=== PATIENT | female | born 1955 | race Caucasian/White ===

== ENCOUNTER → 2017-10-29 | Outpatient (CLI) | payer OTHER ==
[~2017-10-29] MED LIST: ASPI325 PO; ASPI325EC PO; ASPI81CH PO; ASPI81EC PO; CLOP75 PO; CYCL10; CYCL10 PO; ESTR2 PO; ESTRACE PO; FLUO10 PO; GLIM2 PO; HYDACE5 PO; HYDCHL25 PO; IBUP600 PO; INSULANPEN; ISOMON20 PO; ISOMON60ER PO; Imdur30 MG; LISI5 PO; LORA1 PO; LOVA20 PO; METF500 PO; METF500C PO; METO100ER PO; METO25ER PO; NITR.4SL SL; PIOG15 PO; SIMV40 PO; SIMV80 PO; SIMVASTATIN; SITA25T2 PO; SPIR25 PO
== END ==
LOC: LAB SHORT 18:06 → LAB 18:06
DX: E11.51 Type 2 diabetes mellitus with diabetic peripheral angiopathy without gangrene (principal)
CPT/HCPCS: 83036

== ENCOUNTER 2018-06-20 04:39 | Emergency (ER) | payer OTHER ==
[~2018-06-20] VITALS: Ht 157.5 cm; Wt 102.1 kg
[2018-06-20 05:04] LABS: BASOPHILS ABSOLUTE AUTO 0.07 K/mm3 (0.00-0.23); BASOPHILS PERCENT AUTO 1 % (0-2); EOSINOPHILS ABSOLUTE AUTO 0.19 K/mm3 (0.00-0.68); EOSINOPHILS PERCENT AUTO 2 % (0-6); Hemoglobin 13.2 g/dL (11.5-16.0); IMMATURE GRAN ABSOLUTE AUTO 0.05 K/mm3 (0.00-0.10); IMMATURE GRAN PERCENT AUTO 1 % (0-1); LYMPHOCYTES ABSOLUTE AUTO 1.79 K/mm3 (0.84-5.20); LYMPHOCYTES PERCENT AUTO 18 % (21-46); MONOCYTES ABSOLUTE AUTO 0.99 K/mm3 (0.16-1.47); MONOCYTES PERCENT AUTO 10 % (4-13); Mean Corpuscular HGB 30.6 pg (26.0-34.0); Mean Corpuscular HGB Conc 32.2 g/dL (31.5-36.5); Mean Corpuscular Volume 95 fL (80-100); Mean Platelet Volume 9.2 fL (9.1-12.4); NEUTROPHILS ABSOLUTE AUTO 7.15 K/mm3 (1.96-9.15); NEUTROPHILS PERCENT AUTO 70 % (41-73); Platelet Count 258 K/mm3 (150-400); RDW Coefficient Variation 14.3 % (11.7-14.2); RDW Standard Deviation 50.3 fL (35.1-46.3); Red Blood Cell Count 4.32 M/mm3 (3.80-5.20); White Blood Cell Count 10.24 K/mm3 (4.00-11.30)
[2018-06-20 05:23] LABS: Alanine Aminotransfer (ALT/SGP 34 U/L (12-78); Albumin, Blood 3.1 g/dL (3.4-5.0); Albumin/Globulin Ratio 0.8 (0.8-1.8); Alk Phos 89 U/L (50-136); Anion Gap 7 mmol/L (6-16); Aspartate Aminotrans (AST/SGOT 26 U/L (12-37); Bilirubin, Total 0.3 mg/dL (0.1-1.0); Blood Urea Nitrogen 10 mg/dL (8-24); Bun/Creatinine Ratio 18.8 (12.0-20.0); CO2, Blood 26 mmol/L (21-32); Calcium, Blood 8.5 mg/dL (8.5-10.1); Chloride, Blood 106 mmol/L (98-108); Creatinine, Blood 0.53 mg/dL (0.40-1.00); Glomerular Filtration Rate >60 (60-); Glucose, Blood 161 mg/dL (70-99); Potassium, Blood 4.1 mmol/L (3.5-5.5); Sodium, Blood 139 mmol/L (136-145); Total Protein, Blood 7.1 g/dL (6.4-8.2)
[2018-06-20 05:37] LABS: Base Excess Venous 1.4 mmol/L; Bicarbonate Venous 24.9 mmol/L (24.0-30.0); PCO2 Venous 48.5 mmHg (38-42); PO2 Venous 52.9 mmHg (38-42); pH Blood Venous 7.35 (7.34-7.37)
[2018-06-20 05:53] LABS: Magnesium, Blood 1.8 mg/dL (1.6-2.4); Troponin I 0.018 ng/mL (0.000-0.040)
[2018-06-20 07:20] LABS: Source, Urine Clean Catch
[2018-06-20 07:34] LABS: Bilirubin, Urine Neg (Neg); Blood, Urine Neg (Neg); Glucose Qualitative, Urine Neg (Neg); Ketones, Urine 1+ (Neg); Leukocyte Esterase, Urine Neg (Neg); Nitrite, Urine Neg (Neg); Protein, Urine Neg (Neg); Urobilinogen, Urine 1+ (Normal)
[2018-06-20 07:37] LABS: Appearance, Urine Clear (Clear); Color, Urine Yellow (P-Yellow)
[2018-06-20] MEDS ORDERED: Lasix20 MG PO (07:45)
[2018-06-20] MEDS ORDERED: ALBU90OI INH (07:53)
== END 2018-06-20 07:57 | disposition home or self-care (01) ==
LOC: ER 04:39
PROVIDERS: Emergency Medicine
DX: I11.0 Hypertensive heart disease with heart failure (principal); I50.9 Heart failure, unspecified; J44.9 Chronic obstructive pulmonary disease, unspecified; E11.9 Type 2 diabetes mellitus without complications; E78.5 Hyperlipidemia, unspecified; F17.200 Nicotine dependence, unspecified, uncomplicated; Z88.8 Allergy status to other drugs, medicaments and biological substances; Z79.899 Other long term (current) drug therapy; Z79.82 Long term (current) use of aspirin; Z79.4 Long term (current) use of insulin
CPT/HCPCS: 36415; 71046; 80053; 81003; 82803; 83735; 83880; 84484; 85025; 93005; 93010; 94640; 94644; 96374; 99285-25; J1940

== ENCOUNTER 2018-10-27 11:49 | Emergency (ER) | payer OTHER ==
[~2018-10-27] VITALS: Ht 157.5 cm; Wt 102.5 kg
[~2018-10-27 11:49] MED LIST changes: +ALBU90OI INH; +Lasix20 MG PO
[2018-10-27 12:18] LABS: BASOPHILS ABSOLUTE AUTO 0.07 K/mm3 (0.00-0.23); BASOPHILS PERCENT AUTO 1 % (0-2); EOSINOPHILS ABSOLUTE AUTO 0.13 K/mm3 (0.00-0.68); EOSINOPHILS PERCENT AUTO 2 % (0-6); Hematocrit 45.5 % (33.0-51.0); Hemoglobin 15.1 g/dL (11.5-16.0); IMMATURE GRAN ABSOLUTE AUTO 0.03 K/mm3 (0.00-0.10); IMMATURE GRAN PERCENT AUTO 0 % (0-1); LYMPHOCYTES ABSOLUTE AUTO 2.13 K/mm3 (0.84-5.20); LYMPHOCYTES PERCENT AUTO 26 % (21-46); MONOCYTES ABSOLUTE AUTO 0.59 K/mm3 (0.16-1.47); MONOCYTES PERCENT AUTO 7 % (4-13); Mean Corpuscular HGB 29.8 pg (26.0-34.0); Mean Corpuscular HGB Conc 33.2 g/dL (31.5-36.5); Mean Corpuscular Volume 90 fL (80-100); Mean Platelet Volume 9.7 fL (9.1-12.4); NEUTROPHILS ABSOLUTE AUTO 5.41 K/mm3 (1.96-9.15); NEUTROPHILS PERCENT AUTO 65 % (41-73); Platelet Count 283 K/mm3 (150-400); RDW Coefficient Variation 13.4 % (11.7-14.2); RDW Standard Deviation 44.1 fL (35.1-46.3); Red Blood Cell Count 5.06 M/mm3 (3.80-5.20); White Blood Cell Count 8.36 K/mm3 (4.00-11.30)
[2018-10-27 12:58] LABS: Alanine Aminotransfer (ALT/SGP 61 U/L (12-78); Alk Phos 93 U/L (50-136); Anion Gap 4 mmol/L (6-16); Aspartate Aminotrans (AST/SGOT 54 U/L (12-37); Bilirubin, Total 0.4 mg/dL (0.1-1.0); Blood Urea Nitrogen 17 mg/dL (8-24); Bun/Creatinine Ratio 29.6 (12.0-20.0); CO2, Blood 26 mmol/L (21-32); Calcium, Blood 9.1 mg/dL (8.5-10.1); Chloride, Blood 101 mmol/L (98-108); Creatinine, Blood 0.57 mg/dL (0.40-1.00); Globulin, Blood 4.1 g/dL (2.2-4.0); Glomerular Filtration Rate >60 (60-); Glucose, Blood 173 mg/dL (70-99); Potassium, Blood 4.1 mmol/L (3.5-5.5); Sodium, Blood 131 mmol/L (136-145); Total Protein, Blood 8.1 g/dL (6.4-8.2); Troponin I <0.015 ng/mL (0.000-0.040)
[2018-10-27 13:44] LABS: Source, Urine Clean Catch
[2018-10-27 14:05] LABS: Appearance, Urine Clear (Clear); Bilirubin, Urine Neg (Neg); Blood, Urine Neg (Neg); Color, Urine Yellow (P-Yellow); Glucose Qualitative, Urine 2+ (Neg); Ketones, Urine 1+ (Neg); Leukocyte Esterase, Urine Neg (Neg); Nitrite, Urine Neg (Neg); Protein, Urine 1+ (Neg); Urobilinogen, Urine 2+ (Normal)
[2018-10-27] MEDS ORDERED: Cipro500 MG PO (14:29)
[2018-10-27] MEDS ORDERED: Flagyl500 MG PO (14:29)
== END 2018-10-27 14:37 | disposition home or self-care (01) ==
LOC: ER 11:49
PROVIDERS: Physician Assistant
DX: K57.32 Diverticulitis of large intestine without perforation or abscess without bleeding (principal); R91.8 Other nonspecific abnormal finding of lung field; Z88.8 Allergy status to other drugs, medicaments and biological substances; Z79.899 Other long term (current) drug therapy; Z79.4 Long term (current) use of insulin; Z79.82 Long term (current) use of aspirin; I10 Essential (primary) hypertension; E11.9 Type 2 diabetes mellitus without complications; E78.5 Hyperlipidemia, unspecified; F17.200 Nicotine dependence, unspecified, uncomplicated
CPT/HCPCS: 36415; 71046; 74176; 80053; 83690; 83880; 84484; 85025; 93005; 93010; 99284-25; A9270-GY

== ENCOUNTER → 2019-05-31 | Outpatient (CLI) | payer OTHER ==
[~2019-05-31] MED LIST changes: +Cipro500 MG PO; +Flagyl500 MG PO
== END | disposition home or self-care (01) ==
LOC: PLD 07:52 → LAB SHORT 07:52
DX: D36.14 Benign neoplasm of peripheral nerves and autonomic nervous system of thorax (principal)
CPT/HCPCS: 88305

== ENCOUNTER 2020-03-19 08:00 | Emergency (ER) | payer OTHER ==
[~2020-03-19] VITALS: Ht 157.5 cm; Wt 93.9 kg
[2020-03-19 09:21] LABS: BASOPHILS ABSOLUTE AUTO 0.05 K/mm3 (0.00-0.23); BASOPHILS PERCENT AUTO 1 % (0-2); EOSINOPHILS ABSOLUTE AUTO 0.03 K/mm3 (0.00-0.68); EOSINOPHILS PERCENT AUTO 0 % (0-6); Hematocrit 40.8 % (33.0-51.0); Hemoglobin 13.6 g/dL (11.5-16.0); IMMATURE GRAN ABSOLUTE AUTO 0.04 K/mm3 (0.00-0.10); IMMATURE GRAN PERCENT AUTO 0 % (0-1); LYMPHOCYTES PERCENT AUTO 21 % (21-46); MONOCYTES ABSOLUTE AUTO 0.76 K/mm3 (0.16-1.47); MONOCYTES PERCENT AUTO 8 % (4-13); Mean Corpuscular HGB 29.6 pg (26.0-34.0); Mean Corpuscular HGB Conc 33.3 g/dL (31.5-36.5); Mean Corpuscular Volume 89 fL (80-100); Mean Platelet Volume 9.6 fL (9.1-12.4); NEUTROPHILS ABSOLUTE AUTO 7.19 K/mm3 (1.96-9.15); NEUTROPHILS PERCENT AUTO 71 % (41-73); Platelet Count 254 K/mm3 (150-400); RDW Coefficient Variation 12.9 % (11.7-14.2); RDW Standard Deviation 42.4 fL (35.1-46.3); Red Blood Cell Count 4.59 M/mm3 (3.80-5.20); White Blood Cell Count 10.17 K/mm3 (4.00-11.30)
[2020-03-19 09:41] LABS: Alanine Aminotransfer (ALT/SGP 55 U/L (12-78); Albumin, Blood 3.3 g/dL (3.4-5.0); Albumin/Globulin Ratio 0.9 (0.8-1.8); Alk Phos 76 U/L (50-136); Anion Gap 7 mmol/L (6-16); Aspartate Aminotrans (AST/SGOT 27 U/L (12-37); Bilirubin, Total 0.4 mg/dL (0.1-1.0); Blood Urea Nitrogen 11 mg/dL (8-24); Bun/Creatinine Ratio 22.8 (12.0-20.0); CO2, Blood 25 mmol/L (21-32); Calcium, Blood 8.8 mg/dL (8.5-10.1); Chloride, Blood 103 mmol/L (98-108); Creatinine, Blood 0.48 mg/dL (0.40-1.00); Globulin, Blood 3.7 g/dL (2.2-4.0); Glomerular Filtration Rate >60 (60-); Glucose, Blood 180 mg/dL (70-99); Potassium, Blood 3.3 mmol/L (3.5-5.5); Sodium, Blood 135 mmol/L (136-145)
[2020-03-19 09:49] LABS: Source, Urine Clean Catch
[2020-03-19 09:51] LABS: Bilirubin, Urine Neg (Neg); Blood, Urine 1+ (Neg); Glucose Qualitative, Urine 2+ (Neg); Ketones, Urine 1+ (Neg); Leukocyte Esterase, Urine 1+ (Neg); Nitrite, Urine Neg (Neg); Protein, Urine 2+ (Neg); Specific Gravity, Urine 1.015 (1.003-1.022); Urobilinogen, Urine NORM (Normal)
[2020-03-19 10:05] LABS: Appearance, Urine Clear (Clear); Color, Urine Yellow (P-Yellow)
[2020-03-19 10:07] LABS: Bacteria Many /hpf; Red Blood Cells, Urine 0-2 /hpf (0-2); Squamous Epithelial Cells Many /hpf (Few)
[2020-03-19] MEDS ORDERED: HYDR1TAB94 PO (10:39)
== END 2020-03-19 10:38 | disposition home or self-care (01) ==
LOC: ER 08:00
PROVIDERS: Emergency Medicine
DX: K52.9 Noninfective gastroenteritis and colitis, unspecified (principal); I10 Essential (primary) hypertension; I25.10 Atherosclerotic heart disease of native coronary artery without angina pectoris; F17.210 Nicotine dependence, cigarettes, uncomplicated; Z91.041 Radiographic dye allergy status; Z79.899 Other long term (current) drug therapy; Z79.82 Long term (current) use of aspirin; Z79.4 Long term (current) use of insulin; Z95.1 Presence of aortocoronary bypass graft
CPT/HCPCS: 36415; 74176; 80053; 81001; 83690; 85025; 87086; 96361; 96374; 96375; 99284-25; J2405; J3010; J7030

== ENCOUNTER → 2020-04-23 | Outpatient (CLI) | payer OTHER ==
[~2020-04-23] MED LIST changes: +HYDR1TAB94 PO
== END | disposition home or self-care (01) ==
LOC: LAB 11:15 → LAB SHORT 11:15
DX: E11.51 Type 2 diabetes mellitus with diabetic peripheral angiopathy without gangrene (principal)
CPT/HCPCS: 82043

== ENCOUNTER 2020-08-05 12:00 | Emergency (ER) | payer OTHER ==
[~2020-08-05] VITALS: Ht 157.5 cm; Wt 100.2 kg
[2020-08-05 13:04] LABS: BASOPHILS ABSOLUTE AUTO 0.07 K/mm3 (0.00-0.23); BASOPHILS PERCENT AUTO 1 % (0-2); EOSINOPHILS ABSOLUTE AUTO 0.12 K/mm3 (0.00-0.68); EOSINOPHILS PERCENT AUTO 1 % (0-6); Hematocrit 44.8 % (33.0-51.0); Hemoglobin 14.6 g/dL (11.5-16.0); IMMATURE GRAN ABSOLUTE AUTO 0.04 K/mm3 (0.00-0.10); IMMATURE GRAN PERCENT AUTO 0 % (0-1); LYMPHOCYTES ABSOLUTE AUTO 2.12 K/mm3 (0.84-5.20); LYMPHOCYTES PERCENT AUTO 17 % (21-46); MONOCYTES ABSOLUTE AUTO 0.74 K/mm3 (0.16-1.47); MONOCYTES PERCENT AUTO 6 % (4-13); Mean Corpuscular HGB 28.9 pg (26.0-34.0); Mean Corpuscular HGB Conc 32.6 g/dL (31.5-36.5); Mean Corpuscular Volume 89 fL (80-100); Mean Platelet Volume 9.9 fL (9.1-12.4); NEUTROPHILS ABSOLUTE AUTO 9.54 K/mm3 (1.96-9.15); NEUTROPHILS PERCENT AUTO 75 % (41-73); Platelet Count 313 K/mm3 (150-400); RDW Coefficient Variation 12.8 % (11.7-14.2); RDW Standard Deviation 41.9 fL (35.1-46.3); Red Blood Cell Count 5.05 M/mm3 (3.80-5.20); White Blood Cell Count 12.63 K/mm3 (4.00-11.30)
[2020-08-05 13:14] LABS: Alanine Aminotransfer (ALT/SGP 59 U/L (12-78); Albumin, Blood 3.4 g/dL (3.4-5.0); Albumin/Globulin Ratio 0.9 (0.8-1.8); Alk Phos 89 U/L (50-136); Anion Gap 7 mmol/L (6-16); Aspartate Aminotrans (AST/SGOT 53 U/L (12-37); Bilirubin, Total 0.3 mg/dL (0.1-1.0); Blood Urea Nitrogen 14 mg/dL (8-24); Bun/Creatinine Ratio 24.6 (12.0-20.0); CO2, Blood 24 mmol/L (21-32); Calcium, Blood 9.2 mg/dL (8.5-10.1); Chloride, Blood 103 mmol/L (98-108); Creatinine, Blood 0.57 mg/dL (0.40-1.00); Globulin, Blood 3.7 g/dL (2.2-4.0); Glomerular Filtration Rate >60 (60-); Glucose, Blood 201 mg/dL (70-99); Potassium, Blood 4.1 mmol/L (3.5-5.5); Sodium, Blood 134 mmol/L (136-145); Total Protein, Blood 7.1 g/dL (6.4-8.2)
[2020-08-05 15:17] LABS: Source, Urine Clean Catch
[2020-08-05 15:29] LABS: Appearance, Urine Clear (Clear); Blood, Urine Neg (Neg); Color, Urine Yellow (P-Yellow); Glucose Qualitative, Urine 3+ (Neg); Ketones, Urine 1+ (Neg); Leukocyte Esterase, Urine 1+ (Neg); Nitrite, Urine Neg (Neg); Protein, Urine 2+ (Neg); Urobilinogen, Urine 2+ (Normal)
[2020-08-05 15:36] LABS: Bilirubin, Urine 1+ (Neg)
[2020-08-05 15:37] LABS: Amorphous Light (0-Heavy); Bacteria Mod /hpf; Mucus Light (0-Heavy); Red Blood Cells, Urine Not Seen /hpf (0-2); Squamous Epithelial Cells Many /hpf (Few); White Blood Cells, Urine 0-2 /hpf (0-5)
[2020-08-05] MEDS ORDERED: AMOCLA875 PO (15:49)
[2020-08-05] MEDS ORDERED: OXYC5 PO (15:49)
[2020-08-05] MEDS ORDERED: ONDA4 PO (15:49)
== END 2020-08-05 16:15 | disposition home or self-care (01) ==
LOC: ER 12:00
PROVIDERS: Physician Assistant
DX: K57.32 Diverticulitis of large intestine without perforation or abscess without bleeding (principal); Z79.02 Long term (current) use of antithrombotics/antiplatelets; Z79.899 Other long term (current) drug therapy; Z79.82 Long term (current) use of aspirin; Z79.4 Long term (current) use of insulin
CPT/HCPCS: 36415; 71046; 74176; 80053; 81001; 83690; 85025; 87086; 93005; 93010; 96374; 96375; 99284-25; A9270; J1885; J2405

== ENCOUNTER 2020-10-23 19:56 | Observation (INO) | payer OTHER ==
[~2020-10-23] VITALS: Ht 157.5 cm; Wt 93.4 kg
[~2020-10-23 19:56] MED LIST changes: +AMOCLA875 PO; +ONDA4 PO; +OXYC5 PO
[2020-10-23 20:40] LABS: BASOPHILS ABSOLUTE AUTO 0.08 K/mm3 (0.00-0.23); BASOPHILS PERCENT AUTO 1 % (0-2); EOSINOPHILS PERCENT AUTO 1 % (0-6); Hematocrit 42.7 % (33.0-51.0); Hemoglobin 14.6 g/dL (11.5-16.0); IMMATURE GRAN ABSOLUTE AUTO 0.06 K/mm3 (0.00-0.10); IMMATURE GRAN PERCENT AUTO 1 % (0-1); LYMPHOCYTES ABSOLUTE AUTO 2.05 K/mm3 (0.84-5.20); LYMPHOCYTES PERCENT AUTO 19 % (21-46); MONOCYTES ABSOLUTE AUTO 0.78 K/mm3 (0.16-1.47); MONOCYTES PERCENT AUTO 7 % (4-13); Mean Corpuscular HGB 29.6 pg (26.0-34.0); Mean Corpuscular HGB Conc 34.2 g/dL (31.5-36.5); Mean Corpuscular Volume 86 fL (80-100); Mean Platelet Volume 9.6 fL (9.1-12.4); NEUTROPHILS ABSOLUTE AUTO 7.79 K/mm3 (1.96-9.15); NEUTROPHILS PERCENT AUTO 72 % (41-73); Platelet Count 251 K/mm3 (150-400); Red Blood Cell Count 4.94 M/mm3 (3.80-5.20); White Blood Cell Count 10.86 K/mm3 (4.00-11.30)
[2020-10-23 21:00] LABS: Troponin I <0.015 ng/mL (0.000-0.040)
[2020-10-23 21:05] LABS: Alanine Aminotransfer (ALT/SGP 41 U/L (12-78); Albumin, Blood 3.3 g/dL (3.4-5.0); Albumin/Globulin Ratio 0.9 (0.8-1.8); Alk Phos 77 U/L (50-136); Anion Gap 4 mmol/L (6-16); Aspartate Aminotrans (AST/SGOT 53 U/L (12-37); Bilirubin, Total 0.6 mg/dL (0.1-1.0); Blood Urea Nitrogen 14 mg/dL (8-24); Bun/Creatinine Ratio 22.3 (12.0-20.0); CO2, Blood 25 mmol/L (21-32); Calcium, Blood 8.7 mg/dL (8.5-10.1); Chloride, Blood 102 mmol/L (98-108); Creatinine, Blood 0.63 mg/dL (0.40-1.00); Globulin, Blood 3.8 g/dL (2.2-4.0); Glomerular Filtration Rate >60 (60-); Glucose, Blood 184 mg/dL (70-99); Potassium, Blood 5.4 mmol/L (3.5-5.5); Sodium, Blood 131 mmol/L (136-145); Total Protein, Blood 7.1 g/dL (6.4-8.2)
--- NOTE | 2020-10-24 03:35 | NUR ---
REPORT RECEIVED FROM PAMELA BATES AT ED @ 0330. PT TO BE TRANSFERRED TO 227.
--- NOTE | 2020-10-24 03:52 | NUR ---
PT ARRIVED IN ROOM 227 AT 0345. AOX4. VSS. INDEPENDENT IN ROOM. PT REPORTS ABD PAIN IS 2/10. AND MILD NAUSEA. PT WENT TO BATHROOM, VOIDING WITHOUT ISSUE/DIFFICULTY, OUTPUT OF 200ML. LUNG SOUNDS ARE CLEAR. PT DENIES CHEST PAIN. PT REPORTS CHRONIC N/T. NPO AFTER MIDNIGHT. COVID SWAB SENT TO LAB, RESULTS PENDING. CALL LIGHT WITHIN REACH. ORIENT IN ROOM.
[2020-10-24 04:26] LABS: Troponin I <0.015 ng/mL (0.000-0.040)
[2020-10-24 04:35] LABS: Influenza A, PCR NEGATIVE (NEGATIVE); Influenza B, PCR NEGATIVE (NEGATIVE); Resp Syncytial Virus, PCR NEGATIVE (NEGATIVE); SARS-Cov-2 (COVID-19) PCR, MMC NEGATIVE (NEGATIVE)
--- NOTE | 2020-10-24 05:39 | NUR ---
SUMMARY NOTES NO ACUTE CHANGES AT THIS TIME. PT COMFORTABLE SLEEPING BED. REPORTS MINIMAL PAIN. ORDERED CALLED IN FROM DR. MICHAELS FOR FLUIDS AND PAIN MED. LR AT 75ML/HR AND FENTANYL 25-50MG Q3 PRN. CALL LIGHT WITHIN REACH. WILL PROVIDE REPORT TO ONCOMING NURSE.
--- NOTE | 2020-10-24 07:55 | NUR ---
pt reports min pain 1/ no nausea at this time offered pain meds pt declined instructed pt to call if it worsens gave pt a gallbaldder book pt has been npo
--- NOTE | 2020-10-24 11:31 | NUR ---
US AT BEDSIDE
--- NOTE | 2020-10-24 12:31 | NUR ---
dr reno by to see pt earlier labs ordered
--- NOTE | 2020-10-24 14:33 | NUR ---
dr gregorio by to see pt
--- NOTE | 2020-10-24 16:30 | NUR ---
pt transported to day surg via [facility]
--- NOTE | 2020-10-24 17:01 | NUR ---
INTO SDS VIA GURDOMINGA FROM SURG FLOOR. History, Chart, Medications and Allergies reviewed before start of procedure.Patient confirms NPO status and agrees with scheduled surgery. Surgical site prepped with 2% Chlorhexidine cloth wipe.LUNG SOUNDS DIMINISHED T/O.
--- NOTE | 2020-10-24 18:39 | NUR ---
10/24/20 183 Maeve Morgan PT ON SCHEDULED ANTIBIOTIC
--- NOTE | 2020-10-24 20:36 | NUR ---
PT ARRIVED BACK TO ROOM FROM PACU. PT ALERT/DROWSY, VSS. LUNGS CLEAR/DIM, SATS >90% ON 2LO2 NC, IVF RESTARTED. PT REP PAIN W/MVMT AFTER TX INTO BED, WAS MEDICATED IN PACU BEFORE TX TO FLOOR. WILL MONITOR AND MED PER EMAR
[2020-10-25 05:23] LABS: BASOPHILS ABSOLUTE AUTO 0.04 K/mm3 (0.00-0.23); BASOPHILS PERCENT AUTO 0 % (0-2); EOSINOPHILS ABSOLUTE AUTO 0.01 K/mm3 (0.00-0.68); EOSINOPHILS PERCENT AUTO 0 % (0-6); Hematocrit 39.2 % (33.0-51.0); IMMATURE GRAN ABSOLUTE AUTO 0.05 K/mm3 (0.00-0.10); IMMATURE GRAN PERCENT AUTO 0 % (0-1); LYMPHOCYTES ABSOLUTE AUTO 1.73 K/mm3 (0.84-5.20); LYMPHOCYTES PERCENT AUTO 13 % (21-46); MONOCYTES ABSOLUTE AUTO 0.94 K/mm3 (0.16-1.47); MONOCYTES PERCENT AUTO 7 % (4-13); Mean Corpuscular HGB Conc 33.2 g/dL (31.5-36.5); Mean Corpuscular Volume 90 fL (80-100); Mean Platelet Volume 9.5 fL (9.1-12.4); NEUTROPHILS ABSOLUTE AUTO 10.48 K/mm3 (1.96-9.15); NEUTROPHILS PERCENT AUTO 79 % (41-73); Platelet Count 236 K/mm3 (150-400); RDW Coefficient Variation 13.2 % (11.7-14.2); RDW Standard Deviation 43.4 fL (35.1-46.3); Red Blood Cell Count 4.34 M/mm3 (3.80-5.20); White Blood Cell Count 13.25 K/mm3 (4.00-11.30)
[2020-10-25 05:34] LABS: Anion Gap 5 mmol/L (6-16); Blood Urea Nitrogen 13 mg/dL (8-24); Bun/Creatinine Ratio 19.5 (12.0-20.0); CO2, Blood 26 mmol/L (21-32); Chloride, Blood 105 mmol/L (98-108); Creatinine, Blood 0.67 mg/dL (0.40-1.00); Glomerular Filtration Rate >60 (60-); Glucose, Blood 187 mg/dL (70-99); Potassium, Blood 3.6 mmol/L (3.5-5.5); Sodium, Blood 136 mmol/L (136-145)
--- NOTE | 2020-10-25 07:23 | NUR ---
POD 1 S/P [facility] GARRET. PT VSS T/O NIGHT. SATS >90% ON 2LO2 NC. TCDB EXERISES ENC. STERI STRIP CDI. BT HYPO, PT REP NO FLATUS YET. PT HAD NO C/O N/V. PT VERBALIZED FEARS OF TAKING OXYCODONE R/T HAVING PREV LOST SON TO AN OD. TRAMADOL GIVEN, PT REP MILD IMPROVEMENT IN PAIN, STATES IS WILLING TO TRY "SMALL DOSE" OF OXYCODONE THIS AM. IVF CONT PER ORDERS. PT UP OOB W/SBA, MEGHANA WELL. BEDSIDE REPORT GIVEN TO TARIK Ross RN.
[2020-10-25] MEDS ORDERED: Percocet 5-3251 EACH PO (11:29)
--- NOTE | 2020-10-25 13:20 | NUR ---
DISCHARGE PT'S IV DC'D EARLIER IN SHIFT DUE TO LEAKING. CATHETER INTACT. REVIEWED DC INSTRUCTIONS; PT VERBALIZED UNDERSTANDING. PT INSISTING ON DRIVING SELF HOME. STATED NO ONE AVAILABLE TO COME GET HER. GETTING DRESSED NOW.
--- NOTE | 2020-10-25 13:40 | NUR ---
PT LEFT UNIT IN WC W/POSSESSIONS AND DC PAPERWORK IN HAND TO CAR IN PARKING LOT.
== END 2020-10-25 13:33 | disposition home or self-care (01) ==
LOC: ER 19:56 → SURS 19:57
PROVIDERS: Emergency Medicine; Internal Medicine; Physician Assistant; Surgery; ADMIT Internal Medicine
PROC: 0FT44ZZ Resection of Gallbladder, Percutaneous Endoscopic Approach (ICD-10-PCS; principal; 2020-10-24 17:00)
DX: K80.10 Calculus of gallbladder with chronic cholecystitis without obstruction (principal); I25.10 Atherosclerotic heart disease of native coronary artery without angina pectoris; J44.9 Chronic obstructive pulmonary disease, unspecified; I11.0 Hypertensive heart disease with heart failure; I50.9 Heart failure, unspecified; E87.1 Hypo-osmolality and hyponatremia; E11.9 Type 2 diabetes mellitus without complications; F17.200 Nicotine dependence, unspecified, uncomplicated; Z95.1 Presence of aortocoronary bypass graft; Z95.5 Presence of coronary angioplasty implant and graft; Z79.84 Long term (current) use of oral hypoglycemic drugs; Z79.82 Long term (current) use of aspirin; Z20.822 Contact with and (suspected) exposure to COVID-19
CPT/HCPCS: 0241U; 36415; 71046; 74177; 76705; 80048; 80053; 82947; 83605; 83690; 84484; 85025; 93005; 93010; 96365; 96372; 96375; 96376; 99285-25; A9270; G0378; J0330; J0360; J1200; J1650; J1885; J2250; J2270; J2405; J2543; J2704; J2710; J3010; J7030; J7120; Q9967

== ENCOUNTER 2020-12-20 12:41 | Day surgery (SDC) | payer OTHER ==
[~2020-12-20] VITALS: Ht 157.5 cm; Wt 92.5 kg
[~2020-12-20 12:41] MED LIST changes: +Percocet 5-3251 EACH PO
--- NOTE | 2020-12-20 14:33 | NUR ---
12/20/20 1433 MARCO ANTONIO KWOK COLONOSCOPY ATTEMPTED BY DR. LOTT. PT HAD VERY NARROW OPENING AND SCOPE WAS UNABLE TO PASS. CECUM WAS NOT REACHED AND PROCEDURE WAS ABORTED. PT STATES NO PAIN AT THIS TIME. PT BEING REFERRED FOR CT SCAN AN ALTERNATIVE TO COLONOSCOPY. PT UNDERSTANDS PLAN AND WILL AWAIT SCHEDULING FROM DR. LOTT FOR SCAN.
== END 2020-12-20 14:35 | disposition home or self-care (01) ==
LOC: ORSCSDS 12:41
PROVIDERS: Student in an Organized Health Care Education/Training Program
PROC: 0DJD8ZZ Inspection of Lower Intestinal Tract, Via Natural or Artificial Opening Endoscopic (ICD-10-PCS; principal; 2020-12-20 14:00)
DX: K57.30 Diverticulosis of large intestine without perforation or abscess without bleeding (principal); Z87.19 Personal history of other diseases of the digestive system; K56.609 Unspecified intestinal obstruction, unspecified as to partial versus complete obstruction; K64.8 Other hemorrhoids; I10 Essential (primary) hypertension; G47.33 Obstructive sleep apnea (adult) (pediatric); J44.9 Chronic obstructive pulmonary disease, unspecified; E11.9 Type 2 diabetes mellitus without complications; E66.9 Obesity, unspecified; Z68.37 Body mass index [BMI] 37.0-37.9, adult; Z79.01 Long term (current) use of anticoagulants; Z79.82 Long term (current) use of aspirin; Z79.899 Other long term (current) drug therapy
CPT/HCPCS: 82947; J2704; J7120

== ENCOUNTER → 2021-09-09 | Outpatient (CLI) | payer OTHER | END | disposition home or self-care (01) | LOC: LAB SHORT 09:00 → LAB 09:00 | DX: E11.51 Type 2 diabetes mellitus with diabetic peripheral angiopathy without gangrene (principal) | CPT/HCPCS: 82043 ==

== ENCOUNTER → 2021-12-10 | Outpatient (CLI) | payer OTHER | END | disposition home or self-care (01) | LOC: LAB SHORT 08:45 → LAB 08:45 | DX: E11.65 Type 2 diabetes mellitus with hyperglycemia (principal) | CPT/HCPCS: 83036 ==

== ENCOUNTER 2022-04-27 18:25 | Inpatient (IN) | payer OTHER ==
[2022-04-28] MEDS ORDERED: Percocet 5-3251 EACH PO (03:37)
[2022-04-28] MEDS ORDERED: ONDA4ODT MM (03:37)
[2022-04-28 05:40] LABS: BASOPHILS ABSOLUTE AUTO 0.05 K/mm3 (0.00-0.23); BASOPHILS PERCENT AUTO 0 % (0-2); EOSINOPHILS ABSOLUTE AUTO 0.05 K/mm3 (0.00-0.68); EOSINOPHILS PERCENT AUTO 0 % (0-6); Hematocrit 45.5 % (33.0-51.0); Hemoglobin 14.4 g/dL (11.5-16.0); IMMATURE GRAN ABSOLUTE AUTO 0.04 K/mm3 (0.00-0.10); IMMATURE GRAN PERCENT AUTO 0 % (0-1); LYMPHOCYTES ABSOLUTE AUTO 2.68 K/mm3 (0.84-5.20); LYMPHOCYTES PERCENT AUTO 21 % (21-46); MONOCYTES ABSOLUTE AUTO 0.95 K/mm3 (0.16-1.47); MONOCYTES PERCENT AUTO 7 % (4-13); Mean Corpuscular HGB 29.1 pg (26.0-34.0); Mean Corpuscular HGB Conc 31.6 g/dL (31.5-36.5); Mean Corpuscular Volume 92 fL (80-100); Mean Platelet Volume 9.3 fL (9.1-12.4); NEUTROPHILS ABSOLUTE AUTO 9.06 K/mm3 (1.96-9.15); NEUTROPHILS PERCENT AUTO 71 % (41-73); Platelet Count 249 K/mm3 (150-400); RDW Coefficient Variation 13.7 % (11.7-14.2); RDW Standard Deviation 46.5 fL (35.1-46.3); Red Blood Cell Count 4.95 M/mm3 (3.80-5.20); White Blood Cell Count 12.83 K/mm3 (4.00-11.30)
[2022-04-28 05:56] LABS: Albumin, Blood 3.3 g/dL (3.4-5.0); Albumin/Globulin Ratio 0.9 (0.8-1.8); Bilirubin, Total 0.3 mg/dL (0.1-1.0); Bun/Creatinine Ratio 28.4 (12.0-20.0); Calcium, Blood 9.4 mg/dL (8.5-10.1); Creatinine, Blood 0.67 mg/dL (0.40-1.00); Globulin, Blood 3.7 g/dL (2.2-4.0)
[2022-04-28] MEDS ORDERED: Ativan1 MG PO (05:58)
--- NOTE | 2022-04-28 05:59 | NUR ---
NEW ADMIT PT ARRIVED TO 216 @0540 VIA W/C, SBY ASSIST TO BED. ADMITTED FOR R HUMEROUS FX & L TIBIA FX. ORIENTED TO & CALL LIGHT.
[2022-04-28] MEDS ORDERED: HYDR1TAB94 PO (17:46)
[2022-04-28] MEDS ORDERED: ASPI81CH PO (17:47)
--- NOTE | 2022-04-28 18:00 | NUR ---
DISCHARGE SUMMARY PT A&OX4, VSS/RA, MEGHANA PO, VOIDING WELL, AMB IND IN ROOM, PAIN MANAGED WITH NORCO 5/325, IV DC'D. DC INS PROVIDED. PT REP UNDERSTANDING THOSE INSTRUCTIONS INCLUDING FOLLOW UP WITH SURGEON FOR OUTPT SURGERY, NWB RUE WITH SLING AND WBAT WITH KNEE IMMOBILIZER AT ALL TIMES AND KEEP CDI. PT ALSO REP UNDERSTANDING SHE IS TO STOP PLAVIX AND ASA 325, BUT BEGIN ASA 81 MG; I EXPLAINED TO PT TO CONTACT SURGEON'S OFFICE TOMORROW TO CLARIFY ANTICOAG ORDERS AND MAKE A PLAN FOR SURGERY FOR 5-7 DAYS PER INS.
== END 2022-04-28 18:44 | disposition home or self-care (01) | DRG 563 ==
LOC: ER 18:25 → SURS 04-28 05:11
PROVIDERS: Student in an Organized Health Care Education/Training Program; ADMIT Internal Medicine
DX: S42.351A Displaced comminuted fracture of shaft of humerus, right arm, initial encounter for closed fracture (principal); S82.155A Nondisplaced fracture of left tibial tuberosity, initial encounter for closed fracture; I50.32 Chronic diastolic (congestive) heart failure; E11.9 Type 2 diabetes mellitus without complications; J44.9 Chronic obstructive pulmonary disease, unspecified; F17.210 Nicotine dependence, cigarettes, uncomplicated; Z95.1 Presence of aortocoronary bypass graft; Z87.19 Personal history of other diseases of the digestive system; Z95.5 Presence of coronary angioplasty implant and graft; Z90.710 Acquired absence of both cervix and uterus; Z88.8 Allergy status to other drugs, medicaments and biological substances; Z91.041 Radiographic dye allergy status; Z79.4 Long term (current) use of insulin; Z79.02 Long term (current) use of antithrombotics/antiplatelets; Z79.82 Long term (current) use of aspirin; Z79.51 Long term (current) use of inhaled steroids; Z79.899 Other long term (current) drug therapy; W17.2XXA Fall into hole, initial encounter; Y93.K1 Activity, walking an animal
CPT/HCPCS: 36415; 73030; 73060; 73560-LT; 73700; 80053; 82947; 85025; 97110; 97116; 97162; 97166; A9270; J1170; J1815; J1885; J2405

== ENCOUNTER 2022-05-02 11:34 | Inpatient (IN) | payer OTHER ==
[~2022-05-02 11:34] MED LIST changes: +Ativan1 MG PO; +ONDA4ODT MM
--- NOTE | 2022-05-02 19:47 | NUR ---
1715 TO ROOM 216 ACCOMPANIED BY DAUGHTER IN LAW. PT AWAKENS TO VERBAL STIMULI. PT UNABLE TO MOVE RIGHT ARM AND NO SENSATION FROM CLAVICLE DOWN WHICH PER [facility] RN IS PATIENTS BASELINE POST OP FROM SCALENE BLOCK. RIGHT ARM IN SLING WITH POLAR PACK IN PLACE. L LEG IN SPLINT PT DENIES ANY NUMBNESS OR TINGLING, PEDAL PULSES INTACT.
--- NOTE | 2022-05-02 20:10 | NUR ---
1845 PER PCU SUPERVISOR CONDITIONING YARD MONITOR SHOWS ST DEPRESSION. EKG COMPLETED. PT DENIES ANY CHEST PAIN OR DISCOMFORT OR SOB.
--- NOTE | 2022-05-02 20:11 | NUR ---
[address] ROONEY REGARDING PATIENT AND ORDERS RECEIVED. DR LAMB NOTIFIED OF CONSULT. PT WITH NO PAIN OR MOVEMENT TO RIGHT ARM, PULSES INTACT. CAPILLARY REFILL LESS THAN 3 SEC. FINGERS WARM AND PINK
--- NOTE | 2022-05-02 23:34 | NUR ---
PT IS JUST RECENTLY FULLY STAYING AWAKE AND HAS NOT EATEN MEALS. PT HAS GLARGINE INSULIN 50 UNITS ORDERED FOR HS DOSING WITH CBG OF 209.I CALLED DR LAMB AND HE IS HOLDING TONIGHTS DOSE.
[2022-05-03 06:28] LABS: Creatine Kinase MB 2.7 ng/mL (0.0-3.6); Creatine Kinase MB Index 0.9 (0.0-4.0)
--- NOTE | 2022-05-03 08:07 | NUR ---
SUMMARY PT WITH NO C/O CP TONIGHT AND NO REPORTED ISSUES RELATED TO TELE.PT TOLERATED SMALL DIABETIC SNACK. HAS VOIDED.COOPERATIVE WITH [employer] [facility] R SHOULDER . NEEDING ACTIVITY ORDERS TODAY.
[2022-05-03] MEDS ORDERED: CLOP75 PO (12:19)
[2022-05-03] MEDS ORDERED: ASPI325 PO (12:20)
[2022-05-03 14:48] LABS: Creatine Kinase MB 2.8 ng/mL (0.0-3.6)
--- NOTE | 2022-05-03 15:38 | NUR ---
CALLED DR CONNELLY TO REPORT BP OF 81/46 PER GUZMAN Flood RN'S REQUEST. DR CONNELLY STATED WILL REVIEW PT'S CHART.
--- NOTE | 2022-05-03 17:53 | NUR ---
SHIFT SUMMARY PT A&OX4, BP LOW THIS AFTERNOON/BOLUS INFUSING PER EMAR, 2LNC BASELINE/NOC OR SLEEPING. POD1 R ORIF/PRESSURE BANDAGE/SLING/ELEVATED ON PILLOW. LLE IMMOBILIZER ON, ELEVATED AT REST. MEGHANA PO. VOIDING/MULTIPLE BMS TODAY. PAIN MANAGED WITH OXY 5 AND TYLENOL. AMB SBA TO BRP/UP TO CHAIR. WILL REPORT TO ONCOMING NOC JANA.
[2022-05-04 04:25] LABS: Hematocrit 37.2 % (33.0-51.0); Hemoglobin 11.8 g/dL (11.5-16.0); Mean Corpuscular HGB 29.5 pg (26.0-34.0); Mean Corpuscular HGB Conc 31.7 g/dL (31.5-36.5); Mean Corpuscular Volume 93 fL (80-100); Mean Platelet Volume 9.5 fL (9.1-12.4); Platelet Count 314 K/mm3 (150-400); RDW Coefficient Variation 13.7 % (11.7-14.2); White Blood Cell Count 14.47 K/mm3 (4.00-11.30)
[2022-05-04 04:50] LABS: Albumin, Blood 2.6 g/dL (3.4-5.0); Anion Gap 5 mmol/L (6-16); Blood Urea Nitrogen 25 mg/dL (8-24); Bun/Creatinine Ratio 41.3 (12.0-20.0); CO2, Blood 31 mmol/L (21-32); Calcium, Blood 8.8 mg/dL (8.5-10.1); Chloride, Blood 99 mmol/L (98-108); Creatinine, Blood 0.61 mg/dL (0.40-1.00); Glomerular Filtration Rate 100 (60-); Glucose, Blood 183 mg/dL (70-99); Phosphorus, Blood 2.6 mg/dL (2.5-4.9); Potassium, Blood 3.4 mmol/L (3.5-5.5); Sodium, Blood 135 mmol/L (136-145)
--- NOTE | 2022-05-04 08:06 | NUR ---
SUMMARY PTS BP IMPROVED TONIGHT.PT VERB POOR PAIN CONTROL WITH USE OF DILAUDID AND NORCO.I PHONED DR CONDE AND OBTAINED ORDER FOR OXY AND WAS GIVEN. PT REPORTED IMPROVED PAIN CONTROL.
--- NOTE | 2022-05-04 16:32 | NUR ---
SHIFT SUMMARY PT A&OX4, VSS/RA AND 2LNOC FOR SATS >93% BIOX BEDSIDE, TELE NSR 70s. MEGHANA PO. VOIDING. AMB SBA TO BRP, UP TO CHAIR FOR MEALS +. PAIN MANAGED WITH OXY 5 AND TYLENOL. EDU & ENC PO INTAKE. RUE WITH PRESSURE DRESSING AND SLING, ELEVATED ON PILLOW, POLAR MARCI, NWB. LLE WBAT WITH IMMOBILIZER ON. WILL REPORT TO ONCOMING NOC JANA.
--- NOTE | 2022-05-05 04:29 | NUR ---
SUMMARY NO NEW ISSUES NOTED. PT REPORTS PAIN IS DOING BETTER. PT HAS BEEN VOIDING DURING SHIFT. PT HAS SLEPT WELL DURING SHIFT. PT CURRENTLY SLEEPING IN NO DISTRESS. CALL LIGHT IN REACH.
[2022-05-05 04:34] LABS: Albumin, Blood 2.4 g/dL (3.4-5.0); Anion Gap 4 mmol/L (6-16); Blood Urea Nitrogen 15 mg/dL (8-24); Bun/Creatinine Ratio 33.3 (12.0-20.0); CO2, Blood 28 mmol/L (21-32); Calcium, Blood 8.6 mg/dL (8.5-10.1); Chloride, Blood 106 mmol/L (98-108); Creatinine, Blood 0.45 mg/dL (0.40-1.00); Glomerular Filtration Rate 107 (60-); Glucose, Blood 110 mg/dL (70-99); Phosphorus, Blood 3.4 mg/dL (2.5-4.9); Potassium, Blood 3.8 mmol/L (3.5-5.5); Sodium, Blood 138 mmol/L (136-145)
[2022-05-05] MEDS ORDERED: BANOPHEN25 MG PO (13:41)
[2022-05-05] MEDS ORDERED: ASPI81CH PO (13:41)
[2022-05-05] MEDS ORDERED: HUMALOG KW100 UNIT/1 (13:42)
[2022-05-05] MEDS ORDERED: DOCU100 (13:42)
[2022-05-05] MEDS ORDERED: Percocet 5-3251 EACH PO (13:43)
[2022-05-05] MEDS ORDERED: MIRALAX17 GM PO (13:45)
--- NOTE | 2022-05-05 16:59 | NUR ---
DISCHARGE SUMMARY POD3 R HUMORAL ORIF, A/OX 4, VSS, TOLERATING PO, AMBULATING c MINIMAL ASSISTANCE, VOIDING WELL, PAIN WELL MANAGED. DISCUSSSED DISCHARGE INSTRUCTIONS WITH THE PATIENT INCLUDING HOME CARE, MEDICATIONS, AND FOLLOW UP APPOINTMENTS WITH PCP AND SURGEON. COMPRESSION TAPE WAS PEELING UP SO IT WAS REPLACED WITH AN AQUACELL DRESSING WITH AN EXTRA ONE TO TAKE HOME. IV ACCESS REMOVED AND NO DEVICES IN PLACE. RUE IN SLING TO REDUCE MOVEMENT, BRUISING NOTED AROUND INCISION ON RUE. PT HAD NO QUESTIONS AT TIME OF DISCHARGE. PT ESCORTED OUT WITH ALL PERSONAL POSESSIONS OTHER THAN HER SHOES WHICH SHE LAST HAD IN THE [facility].
== END 2022-05-05 16:59 | disposition home health service (06) | DRG 493 ==
LOC: SURS 11:34
PROVIDERS: Internal Medicine; ADMIT Orthopaedic Surgery
PROC: 0PSC04Z Reposition Right Humeral Head with Internal Fixation Device, Open Approach (ICD-10-PCS; principal; 2022-05-02)
DX: S42.201A Unspecified fracture of upper end of right humerus, initial encounter for closed fracture (principal); I45.2 Bifascicular block; S82.152A Displaced fracture of left tibial tuberosity, initial encounter for closed fracture; I50.32 Chronic diastolic (congestive) heart failure; X58.XXXA Exposure to other specified factors, initial encounter; I95.9 Hypotension, unspecified; E11.9 Type 2 diabetes mellitus without complications; J44.9 Chronic obstructive pulmonary disease, unspecified; F32.A Depression, unspecified; F41.9 Anxiety disorder, unspecified; I25.10 Atherosclerotic heart disease of native coronary artery without angina pectoris; Z95.1 Presence of aortocoronary bypass graft; Z95.5 Presence of coronary angioplasty implant and graft; I11.0 Hypertensive heart disease with heart failure; Z90.710 Acquired absence of both cervix and uterus; F17.210 Nicotine dependence, cigarettes, uncomplicated; Z91.041 Radiographic dye allergy status; Z88.8 Allergy status to other drugs, medicaments and biological substances; Z79.82 Long term (current) use of aspirin; Z79.899 Other long term (current) drug therapy; S42.001A Fracture of unspecified part of right clavicle, initial encounter for closed fracture; Z91.040 Latex allergy status; Z79.84 Long term (current) use of oral hypoglycemic drugs; Z79.4 Long term (current) use of insulin
CPT/HCPCS: 36415; 80069; 82550; 82553; 82947; 84484; 85027; 93005; 93010; 94640; 94664; 94760; 94762; 97110; 97116; 97161; 97166; 97530; A9270; J0690; J1170; J1815; J7040

== ENCOUNTER → 2022-08-14 | Outpatient (CLI) | payer OTHER ==
[~2022-08-14] MED LIST changes: +BANOPHEN25 MG PO; +DOCU100; +HUMALOG KW100 UNIT/1; +MIRALAX17 GM PO
== END | disposition home or self-care (01) ==
LOC: LAB 10:45 → LAB SHORT 10:45
DX: E11.51 Type 2 diabetes mellitus with diabetic peripheral angiopathy without gangrene (principal)
CPT/HCPCS: 82043

== ENCOUNTER 2023-02-26 10:55 | Emergency (ER) | payer MEDICARE, OTHER ==
[~2023-02-26] VITALS: Ht 157.5 cm; Wt 88.0 kg
[2023-02-26] MEDS ORDERED: PROBIOTIC1 EA13 PO (16:46)
[2023-02-26] MEDS ORDERED: DOC250 PO (16:46)
[2023-02-26 17:14] VITALS: BP 169/86
== END 2023-02-26 17:05 | disposition home or self-care (01) ==
LOC: ER 10:55
DX: R10.31 Right lower quadrant pain (principal); I11.0 Hypertensive heart disease with heart failure; I50.9 Heart failure, unspecified; E11.9 Type 2 diabetes mellitus without complications; J44.9 Chronic obstructive pulmonary disease, unspecified; I25.10 Atherosclerotic heart disease of native coronary artery without angina pectoris; F17.210 Nicotine dependence, cigarettes, uncomplicated; Z91.041 Radiographic dye allergy status; Z79.82 Long term (current) use of aspirin; Z79.02 Long term (current) use of antithrombotics/antiplatelets; Z79.4 Long term (current) use of insulin; Z79.84 Long term (current) use of oral hypoglycemic drugs; Z79.899 Other long term (current) drug therapy
CPT/HCPCS: 74177; 80053; 85025; 96374-59; 96375; 99284-25; J1100; J1200; J2405; J3010; Q9967

== ENCOUNTER 2024-01-02 08:54 | Inpatient (IN) | payer OTHER ==
[~2024-01-02] VITALS: Ht 157.5 cm; Wt 90.4 kg
[~2024-01-02 08:54] MED LIST changes: +DOC250 PO; -DOCU100; +DOCU100 PO; +PROBIOTIC1 EA13 PO
[2024-01-02] MEDS ORDERED: Aspirin 325 MG Tab PO ONE (09:30)
[2024-01-02] MEDS ORDERED: Ondansetron HCl 2 MG / ML 2ML Vial IV ONE (09:30)
[2024-01-02] MEDS ORDERED: Ipratropium/Albuterol SulF 2.5-0.5MG/3 ML Amp INH ONE (09:30)
[2024-01-02 09:41] LABS: BASOPHILS ABSOLUTE AUTO 0.06 K/mm3 (0.00-0.23); BASOPHILS PERCENT AUTO 0 % (0-2); EOSINOPHILS ABSOLUTE AUTO 0.01 K/mm3 (0.00-0.68); EOSINOPHILS PERCENT AUTO 0 % (0-6); Hematocrit 49.3 % (33.0-51.0); Hemoglobin 16.2 g/dL (11.5-16.0); IMMATURE GRAN ABSOLUTE AUTO 0.14 K/mm3 (0.00-0.10); IMMATURE GRAN PERCENT AUTO 1 % (0-1); LYMPHOCYTES ABSOLUTE AUTO 1.73 K/mm3 (0.84-5.20); LYMPHOCYTES PERCENT AUTO 9 % (21-46); MONOCYTES ABSOLUTE AUTO 0.61 K/mm3 (0.16-1.47); MONOCYTES PERCENT AUTO 3 % (4-13); Mean Corpuscular HGB 30.5 pg (26.0-34.0); Mean Corpuscular HGB Conc 32.9 g/dL (31.5-36.5); Mean Corpuscular Volume 93 fL (80-100); Mean Platelet Volume 9.5 fL (9.1-12.4); NEUTROPHILS ABSOLUTE AUTO 15.77 K/mm3 (1.96-9.15); NEUTROPHILS PERCENT AUTO 86 % (41-73); Platelet Count 348 K/mm3 (150-400); RDW Standard Deviation 47.7 fL (35.1-46.3); Red Blood Cell Count 5.32 M/mm3 (3.80-5.20); White Blood Cell Count 18.32 K/mm3 (4.00-11.30)
[2024-01-02 10:01] LABS: Base Excess Venous -6.8 mmol/L
[2024-01-02 10:02] LABS: PCO2 Venous 45.3 mmHg (38-42)
[2024-01-02 10:04] LABS: pH Blood Venous 7.26 (7.34-7.37)
[2024-01-02 10:16] LABS: Albumin, Blood 3.6 g/dL (3.4-5.0); Albumin/Globulin Ratio 0.8 (0.8-1.8); Bilirubin, Total 0.3 mg/dL (0.1-1.0); Bun/Creatinine Ratio 27.3 (12.0-20.0); Calcium, Blood 9.2 mg/dL (8.5-10.1); Creatinine, Blood 0.51 mg/dL (0.40-1.00); Globulin, Blood 4.5 g/dL (2.2-4.0); Potassium, Blood 4.2 mmol/L (3.5-5.5); Thyroid Stimulating Hormone 4.31 uIU/mL (0.360-4.800); Total Protein, Blood 8.1 g/dL (6.4-8.2)
[2024-01-02] MEDS ORDERED: CefTRIAXone Sodium 1,000 MG in NS 100 ML IV ONE (10:20)
[2024-01-02 10:51] LABS: Influenza A, PCR NEGATIVE (NEGATIVE); Influenza B, PCR NEGATIVE (NEGATIVE); Resp Syncytial Virus, PCR NEGATIVE (NEGATIVE); SARS-Cov-2 (COVID-19) PCR, MMC NEGATIVE (NEGATIVE)
[2024-01-02] MEDS ORDERED: Ipratropium/Albuterol SulF 2.5-0.5MG/3 ML Amp INH SCH (11:45)
[2024-01-02] MEDS ORDERED: Acetaminophen 325 MG TABLET PO PRN (11:45)
[2024-01-02] MEDS ORDERED: Albuterol 2.5 MG/3 ML VIAL INH PRN (11:45)
[2024-01-02] MEDS ORDERED: Furosemide 10 MG/ML 4ML Vial IV SCH (12:00)
[2024-01-02 12:07] LABS: PO2 Arterial 82.1 mmHg (80-100); pH Blood Arterial 7.32 (7.35-7.45)
[2024-01-02 13:05] VITALS: BP 96/76
[2024-01-02] MEDS ORDERED: GLIM4 PO (13:21)
[2024-01-02 13:34] LABS: Source, Urine Clean Catch
[2024-01-02 13:38] LABS: Appearance, Urine Hazy (Clear); Bilirubin, Urine Neg (Neg); Blood, Urine 5+ (Neg); Color, Urine Yellow (P-Yellow); Glucose Qualitative, Urine 4+ (Neg); Ketones, Urine Neg (Neg); Leukocyte Esterase, Urine Neg (Neg); Nitrite, Urine Neg (Neg); Protein, Urine 2+ (Neg); Urobilinogen, Urine NORM (Normal)
[2024-01-02 13:46] LABS: Bacteria Few /hpf; Squamous Epithelial Cells Few /hpf (Few)
[2024-01-02 13:47] LABS: White Blood Cells, Urine 0-2 /hpf (0-5)
[2024-01-02 13:48] LABS: Red Blood Cells, Urine 50-100 /hpf (0-2)
[2024-01-02] MEDS ORDERED: Dose Adjust by Pharmacy XX STA (14:22)
[2024-01-02] MEDS ORDERED: Heparin Sodium,Porcine/0.5 NS 500 ML IV SCH (14:25)
[2024-01-02] MEDS ORDERED: Heparin Sodium 5000 Units/ML 1ML MDV IV ONE (14:25)
[2024-01-02 14:33] LABS: International Normalized Ratio 1.05; Prothrombin Time Results 11.2 Sec (9.7-11.5)
[2024-01-02] MEDS ORDERED: Lisinopril2.5 MG PO (14:51)
[2024-01-02] MEDS ORDERED: METF500C PO (14:54)
[2024-01-02] MEDS ORDERED: TIZA4 PO (14:55)
[2024-01-02] MEDS ORDERED: SPIR50 PO (14:56)
[2024-01-02] MEDS ORDERED: Nitroglycerin 0.4 MG SUBL SL PRN (15:10)
[2024-01-02] MEDS ORDERED: TiZANidine HCl 4 MG Tab PO PRN (15:15)
[2024-01-02] MEDS ORDERED: DiphenhydrAMINE HCL 25 MG Cap PO PRN (15:15)
[2024-01-02] MEDS ORDERED: LORazepam 0.5 MG Tab PO PRN (15:15)
[2024-01-02] MEDS ORDERED: Insulin Human Lispro 100 Units/ML 3ML Syringe SC SCH (16:30)
[2024-01-02 17:05] VITALS: BP 124/66
--- NOTE | 2024-01-02 19:33 | NUR ---
PT SUMMARY; PT ARRIVED IN THE UNIT ABLE TO STAND AND TRANSFER TO PCU BED SBA. ON 4L OF O2 SATS ABOVE 95%, HRR SR 80'S, SBP 120'S, AFEBRILE. PT ALERT AND ORIENTED COOPERATIVE WITH CARES. PT HAD A HEADACHE THAT WENT AWAY AFTER EATING SNACK. CBG 240'S INSULIN GIVEN PER COVERAGE. PT DIURESING AT THIS TIME FOR FLUID OVERLOAD, LACTIC IS UP TO 4.6 FROM 4.5 [place] [address] [place] 1075 MD AWARE, PT STARTED ON HEP GTT 15U/KG/HR, CARDIOLOGY CONSULTED. PT DENIES ANY CHEST PAIN AND PRESSURE HAS SOME ABD PAIN IN THE ER BUT NOT SINCE PT WAS TRANSFERRED IN THE UNIT. PT HAS BEEN CALLING APPROPRIATELY. CALL LIGHTS IN REACH WILL REPORT TO ONCOMING SHIFT
[2024-01-02 20:45] VITALS: BP 117/61
[2024-01-02] MEDS ORDERED: Docusate Sodium 100 MG Cap PO SCH (21:00)
[2024-01-02] MEDS ORDERED: Lisinopril 5 MG Tab PO SCH (21:00)
[2024-01-02] MEDS ORDERED: Metoprolol Succinate 50 MG TABCR PO SCH (21:00)
[2024-01-02 23:28] VITALS: BP 101/59
[2024-01-03] VITALS (17 sets, daily range): BP systolic 97–139; BP diastolic 55–102
[2024-01-03 03:18] LABS: BASOPHILS ABSOLUTE AUTO 0.07 K/mm3 (0.00-0.23); BASOPHILS PERCENT AUTO 0 % (0-2); EOSINOPHILS ABSOLUTE AUTO 0.07 K/mm3 (0.00-0.68); EOSINOPHILS PERCENT AUTO 0 % (0-6); Hematocrit 43.5 % (33.0-51.0); Hemoglobin 14.3 g/dL (11.5-16.0); IMMATURE GRAN ABSOLUTE AUTO 0.06 K/mm3 (0.00-0.10); IMMATURE GRAN PERCENT AUTO 0 % (0-1); LYMPHOCYTES PERCENT AUTO 22 % (21-46); MONOCYTES ABSOLUTE AUTO 1.27 K/mm3 (0.16-1.47); MONOCYTES PERCENT AUTO 8 % (4-13); Mean Corpuscular HGB 30.2 pg (26.0-34.0); Mean Corpuscular HGB Conc 32.9 g/dL (31.5-36.5); Mean Corpuscular Volume 92 fL (80-100); Mean Platelet Volume 9.4 fL (9.1-12.4); NEUTROPHILS ABSOLUTE AUTO 11.41 K/mm3 (1.96-9.15); NEUTROPHILS PERCENT AUTO 69 % (41-73); Platelet Count 267 K/mm3 (150-400); RDW Standard Deviation 47.3 fL (35.1-46.3); Red Blood Cell Count 4.74 M/mm3 (3.80-5.20); White Blood Cell Count 16.58 K/mm3 (4.00-11.30)
[2024-01-03 03:41] LABS: Bun/Creatinine Ratio 25.7 (12.0-20.0); Calcium, Blood 9.3 mg/dL (8.5-10.1); Creatinine, Blood 0.47 mg/dL (0.40-1.00); Magnesium, Blood 1.8 mg/dL (1.6-2.4); Phosphorus, Blood 3.1 mg/dL (2.5-4.9); Potassium, Blood 3.6 mmol/L (3.5-5.5)
[2024-01-03] MEDS ORDERED: Clarify Drug Order XX ONE (03:45)
--- NOTE | 2024-01-03 05:09 | NUR ---
SHIFT SUMMARY. SHIFT HAS BEEN UNREMARKABLE. PT HAS BEEN AOX4, PLEASANT, COOPERATIVE WITH CARE, CALLS APPROPRIATELY, ABLE TO MAKE NEEDS KNOWN. HAS SLEPT THROUGHOUT MOST OF SHIFT. HAS DENIED PAIN THROUGHOUT SHIFT. HAS HAD CONSISTENT URINE OUTPUT, CHARTED APPROPRIATELY. TELE ON THROUGHOUT SHIFT WITH NO ACUTE CHANGES OR EVENTS. VITALS HAVE REMAINED STABLE. PT HAS BEEN NPO SINCE MIDNIGHT PENDING POSSIBLE ANGIO TODAY. HEPARIN RUNNING THROUGHOUT SHIFT, MANAGED BY PHARMACY WITH NO TITRATIONS THUS FAR. BED LOCKED IN LOWEST POSITION. CALL LIGHT LEFT WITHIN REACH. CONTINUING TO MONITOR.
[2024-01-03] MEDS ORDERED: Spironolactone 50 MG Tab PO SCH (09:00)
[2024-01-03] MEDS ORDERED: Isosorbide Mononitrate 60 MG TABCR PO SCH (09:00)
[2024-01-03] MEDS ORDERED: Nicotine 14 MG PATCH TOP SCH (09:00)
[2024-01-03] MEDS ORDERED: Aspirin 81 MG Chew PO SCH (09:00)
[2024-01-03] MEDS ORDERED: Enoxaparin 40 MG/0.4 ML SYR SC SCH (09:00)
[2024-01-03] MEDS ORDERED: Clopidogrel Bisulfate 75 MG Tab PO SCH (09:00)
[2024-01-03] MEDS ORDERED: FLUoxetine HCL 20 MG CAP PO SCH (09:00)
[2024-01-03] MEDS ORDERED: Famotidine 10 MG/ML 2ML Vial IV ONE (11:00)
[2024-01-03] MEDS ORDERED: Verapamil HCL 2.5 MG/ML 2ML Injection ONE (11:02)
[2024-01-03] MEDS ORDERED: Midazolam HCl 1MG / ML 2ML Vial ONE (11:03)
[2024-01-03] MEDS ORDERED: FentaNYL Citrate 50 MCG/ML 2 ML Injection ONE (11:03)
[2024-01-03] MEDS ORDERED: NS 2,000 ML IV ONE (11:03)
[2024-01-03] MEDS ORDERED: Nitroglycerin 2 MG/20 ML BTL ONE (11:03)
[2024-01-03] MEDS ORDERED: Heparin Sodium 1000 Units/ML 10ML MDV ONE ×2 (11:03→12:43)
[2024-01-03] MEDS ORDERED: NS 250 ML IV ONE (11:04)
[2024-01-03] MEDS ORDERED: Hydrocortisone Sod Succinate 100 MG Vial IV ONE (12:00)
[2024-01-03] MEDS ORDERED: Atropine Sulfate 0.1 MG/ML 10ML SYR ONE (12:17)
--- NOTE | 2024-01-03 12:33 | NUR ---
AM NOTES; PT CURRENTLY TAKNE TO FORGE HAND FOR ANGIO.PT WAS PRE MEDICATED FOR CONTRAST ALLERGY WITH STEROID AND PEPCID. ECHO WAS DONE AND DR GUERRERO WAS ABLE TO DISCUSS PLAN WITH THE PT, PT HAS BEEN CHEST PAIN FREE SINCE THIS MORNING, VITALS HAS BEEN STABLE ALERT AND ORIENTED CALLS APPROPRIATELY.WILL CONTINUE TO MONITOR
--- NOTE | 2024-01-03 12:43 | NUR ---
PT TRANSFERRING TO ICU PER ICU SEARCH ADVERTISING STRATEGIST FOR TEMP PACER POST PROCEDURE. REPORT GIVEN TO SALLY BATES. GRANDDAUGHTER WAITING IN THE ROOM WAS GIVEN AN UPDATE AND ACCOMPANIED TO ICU LOUNGE ROOM. ALL BELONGINGS SENT WITH PT
[2024-01-03] MEDS ORDERED: Tirofiban HCL Monohydrate 3.75 MG/15 ML Vial ONE (12:44)
[2024-01-03] MEDS ORDERED: Clopidogrel Bisulfate 300 MG Cap ONE (13:13)
[2024-01-03] MEDS ORDERED: NS 500 ML IV ONE (13:19)
[2024-01-03] MEDS ORDERED: Clopidogrel Bisulfate 300 MG Cap PO ONE (13:45)
--- NOTE | 2024-01-03 15:07 | NUR ---
Assumed care at approximately 1400. Pt alert and oriented, denies chest pain/pressure/SOB. TR band in place, L/radial access site, no bleeding/swelling noted. R/fem temp pacemaker access site intact, dressing in place. Temp pacemaker rate 60, output 10, sens 2.
[2024-01-03] MEDS ORDERED: Ondansetron HCl 2 MG / ML 2ML Vial IV PRN (18:15)
--- NOTE | 2024-01-03 18:25 | NUR ---
Summary. Pt remained flat since arriving from lab support technician. Alert and oriented, physical exam agrees with previous assessment. No chest pain/pressure/SOB, no ectopy noted on monitor. Puriwick placed, to low cont suction. 6 ml air removed from TR band so far in 1 hour intervals, starting at 1530, no bleeding noted. See chart for further details.
[2024-01-03] MEDS ORDERED: Atorvastatin 40 MG Tab PO SCH (21:00)
--- NOTE | 2024-01-03 21:46 | NUR ---
ASSUMED CARE PT A&O X4; SPO2 >92%; MAP >65; RATE IN THE 70-80'S. PT DENIES CP AND SOB. DENIES ANY ABDOMINAL DISCOMFORT. PT COMPLAINS OF NAUSEA W/ ZOFRAN WORKING TO GREAT AFFECT PER PT. RESTING QUIETLY AT THIS TIME. TV PACER HANGING AT BEDSIDE W/ PT SUPINED/REVERSE [place], NO AIR IN SYRINGE/LOCKED. RIGHT FEMORAL SITE FREE OF HEMATOMA, BRUISING, AND BLEEDING AT THIS TIME. LEFT TR BAND IN PLACE W/ SITE WNL AND UNCHANGED FROM PREVIOUS SHIFT. BOTH SITES ASSESSED W/ OFFGOING NURSE.
--- NOTE | 2024-01-03 22:05 | NUR ---
TR BAND UPDATE PT HAS HAD 1ML OF AIR ASPIRATED AT 2030 AND 2130 W/ NO CHANGE IN SITE.
[2024-01-04] VITALS (17 sets, daily range): BP systolic 96–140; BP diastolic 52–78
--- NOTE | 2024-01-04 00:38 | NUR ---
TR BAND 2230 AND 2330 1ML ASPIRATED OUT OF TR BAND. AIR IS COMPLETELY OUT. SITE REMAINS UNCHANGED.
[2024-01-04 03:30] LABS: Hematocrit 41.4 % (33.0-51.0); Hemoglobin 13.8 g/dL (11.5-16.0); Mean Corpuscular HGB 29.9 pg (26.0-34.0); Mean Corpuscular HGB Conc 33.3 g/dL (31.5-36.5); Mean Corpuscular Volume 90 fL (80-100); Platelet Count 249 K/mm3 (150-400); Red Blood Cell Count 4.61 M/mm3 (3.80-5.20); White Blood Cell Count 13.21 K/mm3 (4.00-11.30)
[2024-01-04 03:52] LABS: Anion Gap 8 mmol/L (3-11); Blood Urea Nitrogen 15 mg/dL (8-24); CO2, Blood 31 mmol/L (21-32); Calcium, Blood 8.7 mg/dL (8.5-10.1); Chloride, Blood 99 mmol/L (98-108); Cholesterol 204 mg/dL (50-200); Creatinine, Blood 0.46 mg/dL (0.40-1.00); Glomerular Filtration Rate 105 (60-); Glucose, Blood 208 mg/dL (70-99); HDL Cholesterol 41 mg/dL (>39); LDL/HDL RATIO 3.3; Low Density Lipoprotein Chol 136 mg/dL (0-110); Potassium, Blood 3.7 mmol/L (3.5-5.5); Sodium, Blood 134 mmol/L (136-145); Triglycerides 134 mg/dL (30-160); Very Low Density Lipoprot Chol 26 mg/dL (6-32)
--- NOTE | 2024-01-04 05:52 | NUR ---
SHIFT SUMMARY PT REMAINS A&O X4; SPO2 >92%; MAP >65; RATE IN THE 70'S. NO ACUTE EVENTS OVERNIGHT. DENIES CP, SOB, AND NAUSEA THIS AM. TR BAND OFF; SITE WNL. FEMORAL SITE WNL. PACER STILL IN PLACE. PUREWICK IN PLACE AND PATENT. PT ALSO DENIES ABDOMINAL PAIN THIS AM.
[2024-01-04] MEDS ORDERED: Clopidogrel Bisulfate 75 MG Tab PO SCH (09:00)
[2024-01-04] MEDS ORDERED: Aspirin 81 MG Chew PO SCH (09:00)
[2024-01-04] MEDS ORDERED: FentaNYL Citrate 50 MCG/ML 2 ML Injection IV ONE (09:30)
--- NOTE | 2024-01-04 09:34 | NUR ---
UPDATE DR. GUERRERO IN TO REMOVE TV PACER. PRESSURE HELD FOR [address] GUERRERO. GUAZE AND DRESSING IN PLACE. NO BLEEDING NOTED. PT TO REMAIN SUPINE FOR 2 HOURS. WILL CONTINUE TO MONITOR CLOSELY
--- NOTE | 2024-01-04 17:34 | NUR ---
SHIFT SUMMARY PT REMAINS ALERT AND ORIENTED. BP STABLE. HR REMAINS NSR 70'S. O2 SATS REMAIN ABOVE 90% ON 2L NC. PT COMPLAINED OF PAIN TO HER BACK EARLY IN SHIFT, BUT DENIES ANY PAIN THIS EVENING. PT UP OUT OF BED TO RECLINER CHAIR THIS AFTERNOON WITH SBA. BED BATH PROVIDED. PT VOIDING USING BSC. LEFT RADIAL SITE WNL AND ARM BOARD STILL IN PLACE. RIGHT GROIN WITH DRESSING CLEAN, DRY AND INTACT. NO HEMATOMA NOTED TO GROIN. WILL CONTINUE TO MONITOR AND REPORT TO ONCOMING RN
[2024-01-05 00:11] VITALS: BP 94/54
[2024-01-05 03:57] LABS: Anion Gap 9 mmol/L (3-11); Blood Urea Nitrogen 26 mg/dL (8-24); Bun/Creatinine Ratio 34.3 (12.0-20.0); CO2, Blood 30 mmol/L (21-32); Calcium, Blood 8.7 mg/dL (8.5-10.1); Chloride, Blood 95 mmol/L (98-108); Creatinine, Blood 0.76 mg/dL (0.40-1.00); Glomerular Filtration Rate 86 (60-); Glucose, Blood 151 mg/dL (70-99); Magnesium, Blood 1.6 mg/dL (1.6-2.4); Phosphorus, Blood 2.9 mg/dL (2.5-4.9); Potassium, Blood 3.6 mmol/L (3.5-5.5); Sodium, Blood 130 mmol/L (136-145)
[2024-01-05 04:06] VITALS: BP 114/100
--- NOTE | 2024-01-05 04:08 | NUR ---
PATIENT UP NEEDED IN ROOM. NO COMPLAINT OF CHEST PAIN OF SHORTNESS OF BREATH. WEARING OXYGEN THROUGHOUT THE NIGHT, O2 SATS DIPPING DOWN AT TIMES PATIENT WITH HISTORY OF SLEEP APNEA.
[2024-01-05 08:08] VITALS: BP 97/56
[2024-01-05] MEDS ORDERED: Enoxaparin 40 MG/0.4 ML SYR SC SCH (09:00)
[2024-01-05 09:39] VITALS: BP 106/52
--- NOTE | 2024-01-05 11:23 | NUR ---
SHIFT ASSESSMENT ASSUMED CARE OF PT @ 0700, BEDSIDE REPORT RECEIVED FROM [facility] NURSE. PT A&OX4, FOLLOWING COMMANDS, AMBULATES WITH SBA TO MANAGE LINES/ CORDS. TOLERATING PO INTAKE WELL. DENIES CP OR SOB. L RADIAL ACCESS AND GROIN SITE WITH NO BLEEDING. INITIALLY ON 2LPM O2 VIA NC c SATS >95%, STOPPED NC AND SATS REMAIN IN HIGH 80'S, BACK ON 2LPM O2 VIA NC. HOME O2 EVAL COMPLETE, CASE MANAGEMENT AWARE. PLAN FOR DISCHARGE TODAY.
[2024-01-05] MEDS ORDERED: ALBU90OI INH (12:07)
[2024-01-05] MEDS ORDERED: ATOR80 PO (12:12)
[2024-01-05] MEDS ORDERED: JARDIANCE10 MG PO (12:13)
[2024-01-05] MEDS ORDERED: FURO40 PO (12:15)
[2024-01-05 13:24] VITALS: BP 98/64
--- NOTE | 2024-01-05 14:18 | NUR ---
SUMMARY PT DC'D TO HOME. TAKEN TO EXIT VIA W/C WITH PORTABLE OXYGEN.
== END 2024-01-05 13:30 | disposition home or self-care (01) | DRG 321 ==
LOC: ER 08:54 → ICUE 12:10 → PCU 12:10 → ICUE 01-03 12:24
PROVIDERS: Emergency Medicine; ADMIT Internal Medicine
PROC: 4A033R1 Measurement of Arterial Saturation, Peripheral, Percutaneous Approach (ICD-10-PCS; 2024-01-02)
PROC: 027034Z Dilation of Coronary Artery, One Artery with Drug-eluting Intraluminal Device, Percutaneous Approach (ICD-10-PCS; principal; 2024-01-03)
PROC: 02703ZZ Dilation of Coronary Artery, One Artery, Percutaneous Approach (ICD-10-PCS; 2024-01-03)
PROC: B2111ZZ Fluoroscopy of Multiple Coronary Arteries using Low Osmolar Contrast (ICD-10-PCS; 2024-01-03)
PROC: B2131ZZ Fluoroscopy of Multiple Coronary Artery Bypass Grafts using Low Osmolar Contrast (ICD-10-PCS; 2024-01-03)
PROC: 4A023N7 Measurement of Cardiac Sampling and Pressure, Left Heart, Percutaneous Approach (ICD-10-PCS; 2024-01-03)
PROC: 5A1213Z Performance of Cardiac Pacing, Intermittent (ICD-10-PCS; 2024-01-03)
DX: T82.855A Stenosis of coronary artery stent, initial encounter (principal); I21.4 Non-ST elevation (NSTEMI) myocardial infarction; I50.33 Acute on chronic diastolic (congestive) heart failure; J96.01 Acute respiratory failure with hypoxia; J96.02 Acute respiratory failure with hypercapnia; E87.20 Acidosis, unspecified; I44.2 Atrioventricular block, complete; E87.1 Hypo-osmolality and hyponatremia; J44.9 Chronic obstructive pulmonary disease, unspecified; E66.01 Morbid (severe) obesity due to excess calories; G47.33 Obstructive sleep apnea (adult) (pediatric); F17.210 Nicotine dependence, cigarettes, uncomplicated; I34.0 Nonrheumatic mitral (valve) insufficiency; E11.9 Type 2 diabetes mellitus without complications; I11.0 Hypertensive heart disease with heart failure; F32.A Depression, unspecified; F41.9 Anxiety disorder, unspecified; E78.5 Hyperlipidemia, unspecified; I25.10 Atherosclerotic heart disease of native coronary artery without angina pectoris; Z95.1 Presence of aortocoronary bypass graft; Z79.4 Long term (current) use of insulin; Z79.02 Long term (current) use of antithrombotics/antiplatelets; Z79.82 Long term (current) use of aspirin; Z79.899 Other long term (current) drug therapy; Z95.5 Presence of coronary angioplasty implant and graft; Z68.36 Body mass index [BMI] 36.0-36.9, adult
CPT/HCPCS: 0241U; 33210; 36415; 36600; 71045; 76937; 80048; 80053; 80061; 80069; 81001; 82803; 82947; 83036; 83605; 83690; 83735; 83880; 84100; 84145; 84443; 84484; 85025; 85027; 85347; 85520; 85610; 85730; 92938; 93005; 93010; 93306; 93459; 94640; 94664; 94760; 94761; 96365; 96375; 99152; 99153; 99284-25; A9270; C1725; C1769; C1874; C1887; C1894; C8929; C9604; J0461; J0696; J1644; J1650; J1720; J1940; J2250; J2405; J3010; J3246; J7030; J7040; J7050; Q9957; Q9967

== ENCOUNTER → 2024-06-08 | Outpatient (CLI) | payer OTHER ==
[~2024-06-08] MED LIST changes: +ATOR80 PO; +FLUT1DIS5 INH; +FURO40 PO; +GLIM4 PO; +ISOSORBIDE MONO60 MG PO; +Isosorbide Mono30 MG PO; +JARDIANCE10 MG PO; +Lisinopril2.5 MG PO; +SPIR50 PO; +TIZA4 PO
[2024-06-08 15:34] LABS: Microalb/Creat Ratio UR, Rand Unable to Calculate mg/g (0.000-30.000); Microalbumin, Random Urine <5.000 mg/L (0.000-20.000)
== END | disposition home or self-care (01) ==
LOC: LAB 12:27 → LAB SHORT 12:27
PROVIDERS: Hospitalist
DX: E11.69 Type 2 diabetes mellitus with other specified complication (principal)
CPT/HCPCS: 82043; 82570

== ENCOUNTER → 2024-07-23 | Outpatient (CLI) | payer OTHER ==
[2024-07-23 10:31] LABS: BASOPHILS ABSOLUTE AUTO 0.06 K/mm3 (0.00-0.23); BASOPHILS PERCENT AUTO 1 % (0-2); EOSINOPHILS ABSOLUTE AUTO 0.07 K/mm3 (0.00-0.68); EOSINOPHILS PERCENT AUTO 1 % (0-6); Hematocrit 46.1 % (33.0-51.0); Hemoglobin 15.4 g/dL (11.5-16.0); IMMATURE GRAN ABSOLUTE AUTO 0.04 K/mm3 (0.00-0.10); IMMATURE GRAN PERCENT AUTO 0 % (0-1); LYMPHOCYTES ABSOLUTE AUTO 3.26 K/mm3 (0.84-5.20); LYMPHOCYTES PERCENT AUTO 28 % (21-46); MONOCYTES ABSOLUTE AUTO 0.86 K/mm3 (0.16-1.47); MONOCYTES PERCENT AUTO 7 % (4-13); Mean Corpuscular HGB 29.4 pg (26.0-34.0); Mean Corpuscular HGB Conc 33.4 g/dL (31.5-36.5); Mean Corpuscular Volume 88 fL (80-100); Mean Platelet Volume 8.8 fL (9.1-12.4); NEUTROPHILS ABSOLUTE AUTO 7.47 K/mm3 (1.96-9.15); NEUTROPHILS PERCENT AUTO 64 % (41-73); Platelet Count 276 K/mm3 (150-400); RDW Coefficient Variation 13.4 % (11.7-14.2); RDW Standard Deviation 43.8 fL (35.1-46.3); Red Blood Cell Count 5.23 M/mm3 (3.80-5.20); White Blood Cell Count 11.76 K/mm3 (4.00-11.30)
[2024-07-23 10:45] LABS: Albumin, Blood 3.7 g/dL (3.4-5.0); Bilirubin, Total 0.5 mg/dL (0.1-1.0); Bun/Creatinine Ratio 7.9 (12.0-20.0); Calcium, Blood 9.5 mg/dL (8.5-10.1); Creatinine, Blood 0.89 mg/dL (0.40-1.00); Globulin, Blood 3.6 g/dL (2.2-4.0); Potassium, Blood 3.5 mmol/L (3.5-5.5); Total Protein, Blood 7.3 g/dL (6.4-8.2)
== END | disposition home or self-care (01) ==
LOC: LAB 10:25 → LAB SHORT 10:25
PROVIDERS: Emergency Medicine
DX: E11.65 Type 2 diabetes mellitus with hyperglycemia (principal); R31.9 Hematuria, unspecified
CPT/HCPCS: 80053; 83036; 85025; 87086

== ENCOUNTER 2024-11-01 14:06 | Emergency (ER) | payer OTHER ==
[~2024-11-01] VITALS: Ht 160 cm; Wt 81.7 kg
[2024-11-01 14:57] LABS: BASOPHILS ABSOLUTE AUTO 0.04 K/mm3 (0.00-0.23); BASOPHILS PERCENT AUTO 0 % (0-2); EOSINOPHILS ABSOLUTE AUTO 0.05 K/mm3 (0.00-0.68); EOSINOPHILS PERCENT AUTO 1 % (0-6); Hematocrit 44.1 % (33.0-51.0); Hemoglobin 15.2 g/dL (11.5-16.0); IMMATURE GRAN ABSOLUTE AUTO 0.04 K/mm3 (0.00-0.10); IMMATURE GRAN PERCENT AUTO 0 % (0-1); LYMPHOCYTES ABSOLUTE AUTO 2.45 K/mm3 (0.84-5.20); LYMPHOCYTES PERCENT AUTO 22 % (21-46); MONOCYTES ABSOLUTE AUTO 0.86 K/mm3 (0.16-1.47); MONOCYTES PERCENT AUTO 8 % (4-13); Mean Corpuscular HGB 30.2 pg (26.0-34.0); Mean Corpuscular HGB Conc 34.5 g/dL (31.5-36.5); Mean Corpuscular Volume 88 fL (80-100); Mean Platelet Volume 8.7 fL (9.1-12.4); NEUTROPHILS ABSOLUTE AUTO 7.62 K/mm3 (1.96-9.15); NEUTROPHILS PERCENT AUTO 69 % (41-73); Platelet Count 270 K/mm3 (150-400); RDW Coefficient Variation 13.9 % (11.7-14.2); RDW Standard Deviation 44.2 fL (35.1-46.3); Red Blood Cell Count 5.04 M/mm3 (3.80-5.20); White Blood Cell Count 11.06 K/mm3 (4.00-11.30)
[2024-11-01 15:35] LABS: Albumin, Blood 3.5 g/dL (3.4-5.0); Bilirubin, Total 0.5 mg/dL (0.1-1.0); Bun/Creatinine Ratio 22.5 (12.0-20.0); Calcium, Blood 9.8 mg/dL (8.5-10.1); Creatinine, Blood 0.53 mg/dL (0.40-1.00); Globulin, Blood 3.5 g/dL (2.2-4.0); Potassium, Blood 3.4 mmol/L (3.5-5.5)
[2024-11-01] MEDS ORDERED: DiphenhydrAMINE HCl 50 MG/ML 1ML Vial IV ONE (18:55)
[2024-11-01] MEDS ORDERED: MethylPREDNISolone Sod Succ 125 MG Vial IV ONE (18:55)
[2024-11-01 19:02] VITALS: BP 129/80
[2024-11-01] MEDS ORDERED: TRAM50 PO (20:22)
== END 2024-11-01 20:25 | disposition home or self-care (01) ==
LOC: ER 14:06
PROVIDERS: Emergency Medicine
DX: N32.89 Other specified disorders of bladder (principal); I11.0 Hypertensive heart disease with heart failure; I50.32 Chronic diastolic (congestive) heart failure; J44.9 Chronic obstructive pulmonary disease, unspecified; E11.9 Type 2 diabetes mellitus without complications; Z79.4 Long term (current) use of insulin; Z79.02 Long term (current) use of antithrombotics/antiplatelets; Z79.82 Long term (current) use of aspirin; Z79.84 Long term (current) use of oral hypoglycemic drugs; Z79.899 Other long term (current) drug therapy; Z79.51 Long term (current) use of inhaled steroids; Z88.8 Allergy status to other drugs, medicaments and biological substances; Z91.041 Radiographic dye allergy status
CPT/HCPCS: 74174; 80053; 83690; 85025; 96374-59; 96375-59; 99284-25; J1200; J2919; Q9967

== ENCOUNTER → 2025-05-25 | Outpatient (CLI) | payer OTHER ==
[~2025-05-25] MED LIST changes: +TRAM50 PO
[2025-05-25 15:12] LABS: Creatinine, Urine Random 74.2 mg/dL (27.00-270.00); Microalbumin, Random Urine 11.7 mg/L (0.000-20.000)
== END ==
LOC: LAB SHORT 13:36 → LAB 13:36
PROVIDERS: Hospitalist
DX: E11.59 Type 2 diabetes mellitus with other circulatory complications (principal)
CPT/HCPCS: 82043; 82570